=== PATIENT | female | born 1985 | race African-American/Black ===

== ENCOUNTER 2016-09-15 19:59 | Emergency (ER) | payer SELFPAY ==
--- NOTE | 2016-09-15 20:58 | ER Document Report ---
ED Medical Screen (RME) - General Chief Complaint: Irregular Pulse Stated Complaint: HEART RATE CONCERNS,SHORTNESS OF BREATH Mode of Arrival: Ambulatory Information source: Patient Notes: Patient complains of rapid heart rate off and on for the past 5 days. Patient denies any cough. Patient does report a previous history of tachycardia, but states that was when she was . Patient denies any recent travel or immobilization. Patient denies any history of DVT or PE. hx: None TRAVEL OUTSIDE OF THE [place] IN LAST 30 DAYS: No - Related Data Allergies/Adverse Reactions: No Known Allergies Allergy (Verified 09/15/16 20:51) Past Medical History - Social History Chew tobacco use (# tins/day): No Frequency of alcohol use: None Drug Abuse: None - Past Medical History Cardiac Medical History: Reports: Hx Hypertension - on meds Denies: Hx Coronary Artery Disease, Hx Heart Attack Pulmonary Medical History: Denies: Hx Asthma, Hx Bronchitis, Hx COPD, Hx Pneumonia Neurological Medical History: Denies: Hx Cerebrovascular Accident, Hx Seizures Renal/ Medical History: Denies: Hx Peritoneal Dialysis Musculoskeltal Medical History: Denies Hx Arthritis - Immunizations Immunizations up to date: Yes Hx Diphtheria, Pertussis, Tetanus Vaccination: Yes - as a child Physical Exam - Vital signs Vitals: Temp Pulse Resp BP Pulse Ox 98.1 F 88 16 165/103 H 100 09/15/16 20:49 09/15/16 20:49 09/15/16 20:49 09/15/16 20:49 09/15/16 20:49 - Cardiovascular Rhythm: Regular Heart sounds: S1 appreciated, S2 appreciated Course - Vital Signs Vital signs: Temp Pulse Resp BP Pulse Ox 98.1 F 88 16 165/103 H 100 09/15/16 20:49 09/15/16 20:49 09/15/16 20:49 09/15/16 20:49 09/15/16 20:49
--- NOTE | 2016-09-15 22:55 | ER Document Report ---
ED General - General Chief Complaint: Irregular Pulse Stated Complaint: HEART RATE CONCERNS,SHORTNESS OF BREATH Time seen by provider: 22:50 Mode of Arrival: Ambulatory Notes: Patient is a 30-year-old female that comes emergency department with chief complaint of sensation of her heart racing, she states she gets this intermittently and has had it for the past 5 days more noticeably. Patient denies any specific inciting factors, denies drinking any caffeine, denies recent stressors, denies recreational drug use, denies smoking. Patient states she was told she had an elevated heart rate while she was , she was never medicated for this. Only medication is lisinopril for hypertension, been taking it for one month. Patient has had tubal ligation. Patient denies any recent surgeries, travel, denies any personal or family history of blood clots, denies any lower extremity swelling, she states that when her heart rate elevates it makes her feel like she has to take "fast breaths", she denies difficulty taking a deep breath or shortness of breath otherwise. She denies any pain. TRAVEL OUTSIDE OF THE [place] IN LAST 30 DAYS: No - Related Data Allergies/Adverse Reactions: No Known Allergies Allergy (Verified 09/15/16 20:51) Past Medical History - General Information source: Patient - Social History Smoking Status: Never Smoker Chew tobacco use (# tins/day): No Frequency of alcohol use: None Drug Abuse: None Lives with: Family Family History: Reviewed & Not Pertinent Patient has suicidal ideation: No Patient has homicidal ideation: No - Past Medical History Cardiac Medical History: Reports: Hx Hypertension - on meds Denies: Hx Coronary Artery Disease, Hx Heart Attack Pulmonary Medical History: Denies: Hx Asthma, Hx Bronchitis, Hx COPD, Hx Pneumonia Neurological Medical History: Denies: Hx Cerebrovascular Accident, Hx Seizures Renal/ Medical History: Denies: Hx Peritoneal Dialysis Musculoskeltal Medical History: Denies Hx Arthritis Surgical Hx: Negative - Immunizations Immunizations up to date: Yes Hx Diphtheria, Pertussis, Tetanus Vaccination: Yes - as a child Review of Systems - Review of Systems Constitutional: No symptoms reported EENT: No symptoms reported Cardiovascular: See HPI Respiratory: See HPI Gastrointestinal: No symptoms reported Genitourinary: No symptoms reported Female Genitourinary: No symptoms reported Musculoskeletal: No symptoms reported Skin: No symptoms reported Hematologic/Lymphatic: No symptoms reported Neurological/Psychological: No symptoms reported Physical Exam - Vital signs Vitals: Temp Pulse Resp BP Pulse Ox 98.1 F 88 16 165/103 H 100 09/15/16 20:49 09/15/16 20:49 09/15/16 20:49 09/15/16 20:49 09/15/16 20:49 Interpretation: Normal - General General appearance: Alert, Anxious In distress: None - Patient appears nervous but is otherwise in no distress - HEENT Head: Normocephalic, Atraumatic Eyes: Normal Pupils: PERRL - Respiratory Respiratory status: No respiratory distress Chest status: Nontender Breath sounds: Normal Chest palpation: Normal - Cardiovascular Rhythm: Regular Heart sounds: Normal auscultation Murmur: No - Abdominal Inspection: Normal Distension: No distension Bowel sounds: Normal Tenderness: Nontender. No: Tender, Guarding Organomegaly: No organomegaly - Back Back: Normal, Nontender - Extremities General upper extremity: Normal inspection, Nontender, Normal color, Normal ROM , Normal temperature General lower extremity: Normal inspection, Nontender, Normal color, Normal ROM , Normal temperature, Normal weight bearing. 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 No other antibiotics noted. CBC, chemistry, TSH all unremarkable. Patient reported to me that she was feeling the symptoms again when I was evaluating her, I did notice that at approximately every 8-10 seconds patient had a PVC on the monitor. No other abnormality noted. Blood pressure initially elevated, patient was nervous appearing on examination initially, she relaxed after examination and discussion and went to sleep, blood pressure normalized, because pressure returned to normal I discussed potentially switching patient to a beta sydnie because of her PVCs, after discussion patient declined this, patient states she'll follow-up with primary care and she will return for any concerning symptoms including shortness of breath, chest pain, etc. I feel this is appropriate as no life-threatening etiology was noted. - Vital Signs Vital signs: Temp Pulse Resp BP Pulse Ox 97.9 F 78 14 148/95 H 98 09/16/16 01:28 09/16/16 01:28 09/16/16 01:28 09/16/16 01:28 09/16/16 01:28 - Laboratory Result Diagrams: 09/15/16 23:20 09/15/16 23:20 Laboratory results interpreted by me: 09/15/16 09/15/16 23:20 23:20 MCH 25.6 L MCHC 31.4 L Seg Neutrophils % 33.7 L Eosinophils % 15.4 H Absolute Eosinophils 1.1 H Urine Blood MODERATE H Discharge - Discharge Clinical Impression: Irregular heart beats Condition: Stable Disposition: HOME, SELF-CARE Additional Instructions: Your workup does not show any acute abnormality. On monitoring you are having occasional beats called PVCs (premature ventricular contractions), you have declined beta sydnie medication at this time, this is not necessary but can help you with your symptoms. Please follow-up with your primary care provider for additional monitoring of your blood pressure for close management. Return to emergency department for any concerning or worsening symptoms. Referrals: DIEGO HDZ MD [Primary Care Provider] - Follow up as needed
[2016-09-15 23:40] LABS: ABSOLUTE BASOPHILS # (AUTO) 0.1 10^3/uL (0.0-0.2); ABSOLUTE EOSINOPHILS # (AUTO) 1.1 10^3/uL (0.0-0.6); ABSOLUTE LYMPHOCYTES (AUTO) 3.2 10^3/uL (0.5-4.7); ABSOLUTE MONOCYTES (AUTO) 0.5 10^3/uL (0.1-1.4); ABSOLUTE NEUT (AUTO) 2.5 10^3/uL (1.7-8.2); BASOPHILS % (AUTO) 0.7 % (0-2); EOSINOPHILS % (AUTO) 15.4 % (0-6); HEMATOCRIT 39.4 % (36.0-47.0); HEMOGLOBIN 12.4 g/dL (12.0-15.5); HGB HCT DIFFERENCE -2.2; LYMPHOCYTES % (AUTO) 43.8 % (13-45); MEAN CORPUSCULAR HEMOGLOBIN 25.6 pg (27.0-33.4); MEAN CORPUSCULAR HGB CONC 31.4 g/dL (32.0-36.0); MEAN CORPUSCULAR VOLUME 82 fl (80-97); MONOCYTES % (AUTO) 6.4 % (3-13); RED BLOOD COUNT 4.84 10^6/uL (3.72-5.28); RED CELL DISTRIBUTION WIDTH 13.8 % (11.5-14.0); SEGMENTED NEUTROPHILS % (AUTO) 33.7 % (42-78); WHITE BLOOD COUNT 7.4 10^3/uL (4.0-10.5)
[2016-09-15 23:52] LABS: APPEARANCE,URINE CLEAR; BILIRUBIN,URINE NEGATIVE (NEGATIVE); GLUCOSE, URINE NEGATIVE (NEGATIVE); KETONES,URINE NEGATIVE (NEGATIVE); LEUKOCYTE ESTERASE,URINE NEGATIVE (NEGATIVE); NITRITE,URINE NEGATIVE (NEGATIVE); PROTEIN,URINE NEGATIVE (NEGATIVE); URINE SPECIFIC GRAVITY 1.016; UROBILINOGEN,URINE NEGATIVE mg/dL (<2.0)
[2016-09-16 00:02] LABS: URINE BARBITURATES SCREEN NEGATIVE; URINE METHADONE SCREEN NEGATIVE; URINE PHENCYCLIDINE SCREEN NEGATIVE
[2016-09-16 00:31] LABS: ALANINE AMINOTRANSFERASE 23 U/L (9-52); ALBUMIN 4.6 g/dL (3.5-5.0); ALKALINE PHOSPHATASE 80 U/L (38-126); ANION GAP 13 (5-19); ASPARTATE AMINO TRANSFERASE 21 U/L (14-36); BILIRUBIN,TOTAL 0.9 mg/dL (0.2-1.3); BLOOD UREA NITROGEN 11 mg/dL (7-20); CALCIUM 9.9 mg/dL (8.4-10.2); CARBON DIOXIDE 25 mmol/L (22-30); CHLORIDE 104 mmol/L (98-107); CREATININE RESULT 0.57 mg/dL (0.52-1.25); GLUCOSE 102 mg/dL (75-110); POTASSIUM 3.6 mmol/L (3.6-5.0); TOTAL PROTEIN 7.8 g/dL (6.3-8.2)
[2016-09-16 02:10] VITALS: BP 148/95
--- NOTE | 2016-09-16 08:17 | EKG REPORT ---
SEVERITY:- ABNORMAL ECG - SINUS RHYTHM CONSIDER LEFT VENTRICULAR HYPERTROPHY BORDERLINE PROLONGED QT INTERVAL : Confirmed by: David Greenfield MD 16-Sep-2016 08:16:53
== END 2016-09-16 01:28 | disposition home or self-care (01) ==
LOC: ER 19:59
DX: I49.3 Ventricular premature depolarization (principal); R06.82 Tachypnea, not elsewhere classified; I10 Essential (primary) hypertension; Z79.899 Other long term (current) drug therapy
CPT/HCPCS: 36415; 80053; 80307; 81001; 84443; 84703; 85025; 93005; 93010; 99285

== ENCOUNTER 2019-04-24 17:36 | Emergency (ER) | payer BC, OTHER ==
--- NOTE | 2019-04-24 18:09 | ER Document Report ---
ED Medical Screen (RME) - General Chief Complaint: Chest Pain > 30 Stated Complaint: CHEST PAIIN Time Seen by Provider: 04/24/19 17:53 Primary Care Provider: DIEGO HDZ MD [Primary Care Provider] - Follow up as needed TRAVEL OUTSIDE OF THE [place] IN LAST 30 DAYS: No - HPI Notes: 04/24/19 18:06 33-year-old female to the emergency department with complaints of chest pain that began on Wednesday night (3 days ago). She states that it hurts every time she takes a big deep breath and when she twists. She states that she started to feel like the pain is getting a little bit worse and she feels short of breath with it. She denies any history of heart attack in herself. She is a hypertensive patient. She is not sure which she takes for high blood pressure. She does not have high cholesterol and she is not diabetic. There is no family history of heart disease. She denies any leg swelling. She denies any recent travel. She is on oral contraceptives. She denies any vomiting, diaphoresis. She also reports bilateral feet pain for plantar fasciitis that has been ongoing for some time. She is a non smoker. Performed a medical screening exam on patient. We will go ahead and order an EKG and chest x-ray. Suspect that her symptoms are mainly musculoskeletal in nature. She will be bedded on the main side and main side provider will further evaluate and manage her care. HEART SCORE of 1. PERC Negative. - Related Data Allergies/Adverse Reactions: No Known Allergies Allergy (Verified 09/15/16 20:51) Past Medical History - Past Medical History Cardiac Medical History: Reports: Hx Hypertension - on meds Denies: Hx Coronary Artery Disease, Hx Heart Attack Pulmonary Medical History: Denies: Hx Asthma, Hx Bronchitis, Hx COPD, Hx Pneumonia Neurological Medical History: Denies: Hx Cerebrovascular Accident, Hx Seizures Renal/ Medical History: Denies: Hx Peritoneal Dialysis Musculoskeltal Medical History: Denies Hx Arthritis - Immunizations Immunizations up to date: Yes Hx Diphtheria, Pertussis, Tetanus Vaccination: Yes - as a child Physical Exam - Vital signs Vitals: Temp Pulse Resp BP Pulse Ox 99.2 F 92 16 168/102 H 98 04/24/19 17:42 04/24/19 17:42 04/24/19 17:42 04/24/19 17:42 04/24/19 17:42 Course - Vital Signs Vital signs: Temp Pulse Resp BP Pulse Ox 99.2 F 92 16 168/102 H 98 04/24/19 17:42 04/24/19 17:42 04/24/19 17:42 04/24/19 17:42 04/24/19 17:42 Doctor's Discharge - Discharge Referrals: DIEGO HDZ MD [Primary Care Provider] - Follow up as needed
--- NOTE | 2019-04-24 18:38 | RADIOLOGY REPORT (SQ) ---
EXAM DESCRIPTION: CHEST 2 VIEWS COMPLETED DATE/TIME: 04/24/2019 6:22 pm REASON FOR STUDY: chest pain COMPARISON: 11/07/2012 EXAM PARAMETERS: NUMBER OF VIEWS: two views TECHNIQUE: Digital Frontal and Lateral radiographic views of the chest acquired. RADIATION DOSE: NA LIMITATIONS: none FINDINGS: LUNGS AND PLEURA: No opacities, masses or pneumothorax. No pleural effusion. MEDIASTINUM AND HILAR STRUCTURES: No masses or contour abnormalities. HEART AND VASCULAR STRUCTURES: Cardiomegaly. No lauryn pulmonary edema. BONES: No acute findings. HARDWARE: None in the chest. OTHER: No other significant finding. IMPRESSION: Cardiomegaly without pulmonary edema. TECHNICAL DOCUMENTATION: JOB ID: [id number] [employer]- All Rights Reserved Reading location - IP/workstation name: [email or web address]
[2019-04-24 19:28] LABS: ABSOLUTE EOSINOPHILS # (AUTO) 0.7 10^3/uL (0.0-0.6); ABSOLUTE LYMPHOCYTES (AUTO) 2.5 10^3/uL (0.5-4.7); ABSOLUTE MONOCYTES (AUTO) 0.5 10^3/uL (0.1-1.4); ABSOLUTE NEUT (AUTO) 3.7 10^3/uL (1.7-8.2); BASOPHILS % (AUTO) 0.6 % (0-2); EOSINOPHILS % (AUTO) 9.6 % (0-6); HEMATOCRIT 36.8 % (36.0-47.0); HEMOGLOBIN 11.7 g/dL (12.0-15.5); LYMPHOCYTES % (AUTO) 33.4 % (13-45); MEAN CORPUSCULAR HEMOGLOBIN 24.7 pg (27.0-33.4); MEAN CORPUSCULAR HGB CONC 31.8 g/dL (32.0-36.0); MEAN CORPUSCULAR VOLUME 78 fl (80-97); MONOCYTES % (AUTO) 6.5 % (3-13); PLATELET COUNT 299 10^3/uL (150-450); RED BLOOD COUNT 4.74 10^6/uL (3.72-5.28); RED CELL DISTRIBUTION WIDTH 14.5 % (11.5-14.0); SEGMENTED NEUTROPHILS % (AUTO) 49.9 % (42-78); TOTAL CELLS COUNTED % (AUTO) 100 %; WHITE BLOOD COUNT 7.4 10^3/uL (4.0-10.5)
[2019-04-24 19:38] LABS: ANION GAP 9 (5-19); BLOOD UREA NITROGEN 13 mg/dL (7-20); CALCIUM 9.5 mg/dL (8.4-10.2); CARBON DIOXIDE 24 mmol/L (22-30); CHLORIDE 105 mmol/L (98-107); GLUCOSE 92 mg/dL (75-110); POTASSIUM 3.8 mmol/L (3.6-5.0)
--- NOTE | 2019-04-24 20:42 | ER Document Report ---
ED Cardiac - General Chief Complaint: Chest Pain > 30 Stated Complaint: CHEST PAIIN Time Seen by Provider: 04/24/19 17:53 Primary Care Provider: DIEGO HDZ MD [Primary Care Provider] - Follow up as needed Mode of Arrival: Ambulatory Information source: Patient TRAVEL OUTSIDE OF THE [place] IN LAST 30 DAYS: No - HPI Notes: Patient states she has been having approximately 2 days of squeezing central chest pain. She also feels like she has trouble catching her breath. She denies any previous history of DVTs or PEs. She also denies a family history of this. No recent long plane rides or car trips. No recent surgeries. She has not had any leg swelling. She has had no cough cold or congestion. No previous history of cardiac disease. This pain is in the center of her chest and does not radiate. It is mild to moderate. It does appear intermittent. Nothing appears to make it better or worse except lying on her right side does appear to make the pain better. She denies any type of heartburn or problems with eating. No abdominal pain. No sweating or nausea. - Related Data Allergies/Adverse Reactions: No Known Allergies Allergy (Verified 09/15/16 20:51) Past Medical History - General Information source: Patient - Social History Smoking Status: Never Smoker Frequency of alcohol use: None Drug Abuse: None Family History: Reviewed & Not Pertinent Patient has suicidal ideation: No Patient has homicidal ideation: No - Past Medical History Cardiac Medical History: Reports: Hx Hypertension - on meds Denies: Hx Coronary Artery Disease, Hx Heart Attack Pulmonary Medical History: Denies: Hx Asthma, Hx Bronchitis, Hx COPD, Hx Pneumonia Neurological Medical History: Denies: Hx Cerebrovascular Accident, Hx Seizures Renal/ Medical History: Denies: Hx Peritoneal Dialysis Musculoskeletal Medical History: Denies Hx Arthritis - Immunizations Immunizations up to date: Yes Hx Diphtheria, Pertussis, Tetanus Vaccination: Yes - as a child Review of Systems - Review of Systems Constitutional: denies: Chills, Fever Cardiovascular: Chest pain, Dyspnea Respiratory: Short of breath. denies: Cough Gastrointestinal: denies: Abdominal pain, Diarrhea, Vomiting -: Yes All other systems reviewed and negative Physical Exam - Vital signs Vitals: Temp Pulse Resp BP Pulse Ox 99.2 F 92 16 168/102 H 98 04/24/19 17:42 04/24/19 17:42 04/24/19 17:42 04/24/19 17:42 04/24/19 17:42 Interpretation: Hypertensive - General General appearance: Appears well, Alert - HEENT Head: Normocephalic, Atraumatic Eyes: Normal Pupils: PERRL - Respiratory Respiratory status: No respiratory distress Chest status: Nontender Breath sounds: Normal Chest palpation: Normal - Cardiovascular Rhythm: Regular Heart sounds: Normal auscultation Murmur: No - Abdominal Inspection: Normal Distension: No distension Bowel sounds: Normal Tenderness: Nontender Organomegaly: No organomegaly - Back Back: Normal, Nontender - Extremities General upper extremity: Normal inspection, Nontender, Normal color, Normal ROM, Normal temperature General lower extremity: Normal inspection, Nontender, Normal color, Normal ROM, Normal temperature, Normal weight bearing. No: Teddy's sign - Neurological Neuro grossly intact: Yes Cognition: Normal Orientation: AAOx4 Kenneth Coma Scale Eye Opening: Spontaneous Kenneth Coma Scale Verbal: Oriented Kenneth Coma Scale Motor: Obeys Commands [place] Coma Scale Total: 15 Speech: Normal Motor strength normal: LUE, RUE, LLE, RLE Sensory: Normal - Psychological Associated symptoms: Normal affect, Normal mood - Skin Skin Temperature: Warm Skin Moisture: Dry Skin Color: Normal Course - Re-evaluation Re-evalutation: 04/24/19 20:40 Patient rechecked is now. She still has the squeezing sensation however work-up was unremarkable. I did tell the patient this could possibly be reflux and will try some Carafate. I do not find any evidence that this is cardiac or pulmonary in origin. I feel patient is safe to be discharged home. I am going to have patient follow-up in the morning with her primary care physician. She states she is able to do this. I am going to recommend outpatient stress test. 04/24/19 20:42 HEART Score of 2 - Vital Signs Vital signs: Temp Pulse Resp BP Pulse Ox 99.2 F 92 16 168/102 H 98 04/24/19 17:42 04/24/19 17:42 04/24/19 17:42 04/24/19 17:42 04/24/19 17:42 - Laboratory Result Diagrams: 04/24/19 19:02 04/24/19 19:02 Laboratory results interpreted by me: 04/24/19 19:02 Hgb 11.7 L MCV 78 L MCH 24.7 L MCHC 31.8 L RDW 14.5 H Eos % (Auto) 9.6 H Absolute Eos (auto) 0.7 H 04/24/19 20:43 Laboratory 04/24/19 04/24/19 04/24/19 19:02 19:02 19:02 WBC 7.4 RBC 4.74 Hgb 11.7 L Hct 36.8 MCV 78 L MCH 24.7 L MCHC 31.8 L RDW 14.5 H Plt Count 299 Lymph % (Auto) 33.4 [place] % (Auto) 6.5 Eos % (Auto) 9.6 H Baso % (Auto) 0.6 Absolute Neuts (auto) 3.7 Absolute Lymphs (auto) 2.5 Absolute Monos (auto) 0.5 Absolute Eos (auto) 0.7 H Absolute Basos (auto) 0.0 Seg Neutrophils % 49.9 D-Dimer 0.28 Sodium 138.4 Potassium 3.8 Chloride 105 Carbon Dioxide 24 Anion Gap 9 BUN 13 Creatinine 0.60 Est GFR ( Amer) > 60 Est GFR (MDRD) Non-Af > 60 Glucose 92 Calcium 9.5 Troponin I 04/24/19 19:02 WBC RBC Hgb Hct MCV MCH MCHC RDW Plt Count Lymph % (Auto) [place] % (Auto) Eos % (Auto) Baso % (Auto) Absolute Neuts (auto) Absolute Lymphs (auto) Absolute Monos (auto) Absolute Eos (auto) Absolute Basos (auto) Seg Neutrophils % D-Dimer Sodium Potassium Chloride Carbon Dioxide Anion Gap BUN Creatinine Est GFR ( Amer) Est GFR (MDRD) Non-Af Glucose Calcium Troponin I < 0.012 - Diagnostic Test Radiology reviewed: Image reviewed, Reports reviewed - EKG Interpretation by Me EKG shows normal: Sinus rhythm Rate: Normal - 95 Rhythm: NSR Voltage: Consistant with [facility] Discharge - Discharge Clinical Impression: Atypical chest pain Condition: Stable Disposition: HOME, SELF-CARE Instructions: Chest Pain of Unclear Cause ([facility]) Additional Instructions: Please follow-up with your physician tomorrow. Please discuss a cardiac stress test. Prescriptions: Sucralfate [Carafate] 1 gm PO QID 5 Days #100 oral.susp Forms: Elevated Blood Pressure, Return to Work Referrals: DIEGO HDZ MD [Primary Care Provider] - Follow up as needed
[2019-04-24 21:30] VITALS: BP 156/93
--- NOTE | 2019-04-25 07:02 | EKG REPORT ---
SEVERITY:- ABNORMAL ECG - SINUS RHYTHM LEFT VENTRICULAR HYPERTROPHY : Confirmed by: David Greenfield MD 25-Apr-2019 07:01:34
== END 2019-04-24 21:30 | disposition home or self-care (01) ==
LOC: ER 17:36
DX: R07.89 Other chest pain (principal); I10 Essential (primary) hypertension; Z79.899 Other long term (current) drug therapy
CPT/HCPCS: 36415; 71046; 80048; 84484; 85025; 85379; 93005; 93010; 99285